=== PATIENT | female | born 1935 | race Caucasian/White ===

== ENCOUNTER 2021-05-08 13:00 | Inpatient (IN) | payer MEDICARE ==
[~2021-05-08] VITALS: Ht 167.6 cm; Wt 106.6 kg
[2021-05-08] MEDS ORDERED: SODIUM CHLORIDE 0.9% 1,000 ML IV ONE (13:15)
[2021-05-08 14:24] LABS: HEMATOCRIT. 38.2 % (36.0-48.0); HEMOGLOBIN. 12.3 g/dL (12.0-16.0); MEAN CORPUSCULAR HEMOGLOBIN 28.1 pg (28.0-32.0); MEAN CORPUSCULAR VOLUME 86.8 fL (81.0-99.0); MEAN PLATELET VOLUME 10.9 fl (7.4-10.4); PLATELET 144 x1000/uL (130-400); RED CELL DISTRIBUTION WIDTH 14.6 % (11.6-14.6)
[2021-05-08 14:32] LABS: CHLORIDE 106 mEq/L (98-107)
[2021-05-08 14:47] LABS: ATYPICAL LYMPHOCYTES 2; PLATELET ESTIMATE NORMAL
[2021-05-08] MEDS ORDERED: AMLODIPINE 5MG TABLET PO ONE (19:00)
[2021-05-08] MEDS ORDERED: MORPHINE SULFATE 4 MG/ML CPJ (NOT FOR IM USE) IV STA (19:05)
[2021-05-08] MEDS ORDERED: ONDANSETRON HCL 4MG/2ML INJ IV STA (19:05)
[2021-05-08 21:51] LABS: CLARITY URINE CLEAR (CLEAR); COLOR URINE YELLOW (YELLOW); KETONES URINE NEGATIVE (NEGATIVE); LEUKOCYTE ESTERASE URINE NEGATIVE (NEGATIVE); NITRITE URINE NEGATIVE (NEGATIVE); OCCULT BLOOD URINE NEGATIVE (NEGATIVE); PROTEIN URINE NEGATIVE (NEGATIVE); SPECIFIC GRAVITY URINE 1.015 (1.005-1.030); UROBILINOGEN URINE 0.2 E.U./dL (0.2-1.0)
[2021-05-09 14:00] VITALS: BP 178/64
[2021-05-09 14:25] VITALS: BP 178/64
[2021-05-09] MEDS ORDERED: ENOXAPARIN 40MG/0.4ML SYR SUBCUT SCH (15:30)
[2021-05-09] MEDS ORDERED: ACETAMINOPHEN 325MG TABLET PO PRN (15:30)
[2021-05-09] MEDS ORDERED: HYDROCODONE/ACETAMINOPHEN 5/325MG TABLET PO PRN (15:30)
[2021-05-09] MEDS ORDERED: IPRATROPIUM/ALBUTEROL 0.5-3(2.5)MG/3ML NEB HHN PRN (15:30)
[2021-05-09] MEDS ORDERED: DEXTROSE 50% WATER 50ML SYRINGE IV PRN (16:45)
[2021-05-09] MEDS: INSULIN LISPRO 100 UNITS/ML SUBCUT SCH ×2 (17:14→21:00)
[2021-05-09] MEDS: BLOOD SUGAR DIAGNOSTIC STRIP TEST SCH ×2 (17:14→21:12)
[2021-05-09] MEDS: SODIUM CHLORIDE 0.45% 1,000 ML IV SCH (17:59)
[2021-05-09] MEDS: ENOXAPARIN 30MG/0.3ML SYR SUBCUT SCH (17:59)
[2021-05-09 20:00] VITALS: BP 199/74
[2021-05-09] MEDS: PIPERACILLIN/TAZOBACTAM 3.375 G in DEXTROSE 5% WATER 50 ML IV NR (21:12)
[2021-05-09] MEDS ORDERED: PIPERACILLIN/TAZOBACTAM 3.375 G in DEXTROSE 5% WATER 50 ML IV SCH (22:00)
[2021-05-09] MEDS: CLONIDINE 0.1MG TABLET PO PRN (22:35)
[2021-05-10] VITALS: BP 147/70
[2021-05-10] MEDS: PIPERACILLIN/TAZOBACTAM 3.375G in DEXT 5% WATER 50ML IV SCH ×4 (00:09→22:14)
[2021-05-10 00:33] LABS: CREATINE KINASE 32 IU/L (26-192)
[2021-05-10 00:34] LABS: CREATINE KINASE MB FRACTION 1.3 ng/mL (0.5-3.6)
[2021-05-10 04:00] VITALS: BP 152/64
[2021-05-10] MEDS: ENOXAPARIN 30MG/0.3ML SYR SUBCUT SCH ×2 (06:02→18:11)
[2021-05-10] MEDS: BLOOD SUGAR DIAGNOSTIC STRIP TEST SCH ×4 (07:47→20:23)
[2021-05-10] MEDS: INSULIN LISPRO 100 UNITS/ML SUBCUT SCH ×4 (07:47→20:23)
[2021-05-10 08:21] LABS: HEMATOCRIT. 36.3 % (36.0-48.0); HEMOGLOBIN. 11.9 g/dL (12.0-16.0); MEAN CORPUSCULAR HEMOGLOBIN 28.3 pg (28.0-32.0); MEAN CORPUSCULAR VOLUME 86.3 fL (81.0-99.0); MEAN PLATELET VOLUME 10.6 fl (7.4-10.4); PLATELET 142 x1000/uL (130-400); RED CELL DISTRIBUTION WIDTH 14.5 % (11.6-14.6)
[2021-05-10 08:44] LABS: CHLORIDE 107 mEq/L (98-107)
[2021-05-10] MEDS: SODIUM CHLORIDE 0.45% 1,000 ML IV SCH (08:53)
[2021-05-10 08:54] LABS: HDL CHOLESTEROL 34 mg/dL (40-59); LDL CHOLESTEROL 133 mg/dL (5-100)
[2021-05-10 08:55] LABS: CREATINE KINASE 39 IU/L (26-192); CREATINE KINASE MB FRACTION < 1.0 ng/mL (0.5-3.6)
[2021-05-10 08:57] LABS: T4 FREE 1.55 ng/dL (0.76-1.46)
[2021-05-10 12:00] VITALS: BP 162/75
[2021-05-10] MEDS: CLONIDINE 0.1MG TABLET PO PRN ×2 (13:03→20:23)
[2021-05-10] MEDS: PIPERACILLIN/TAZOBACTAM 3.375 G in DEXTROSE 5% WATER 50 ML IV NR (15:21)
[2021-05-10 16:00] VITALS: BP 118/61
[2021-05-10 18:28] LABS: PLATELET ESTIMATE NORMAL
[2021-05-10 20:00] VITALS: BP 183/62
[2021-05-11] VITALS: BP 157/69
[2021-05-11] MEDS: SODIUM CHLORIDE 0.45% 1,000 ML IV SCH ×2 (01:51→17:15)
[2021-05-11 04:00] VITALS: BP 191/68
[2021-05-11] MEDS: ENOXAPARIN 30MG/0.3ML SYR SUBCUT SCH ×2 (06:02→17:15)
[2021-05-11] MEDS: PIPERACILLIN/TAZOBACTAM 3.375G in DEXT 5% WATER 50ML IV SCH ×3 (06:02→21:25)
[2021-05-11] MEDS: CLONIDINE 0.1MG TABLET PO PRN (06:03)
[2021-05-11] MEDS: BLOOD SUGAR DIAGNOSTIC STRIP TEST SCH ×4 (07:40→21:25)
[2021-05-11] MEDS: INSULIN LISPRO 100 UNITS/ML SUBCUT SCH ×4 (07:54→21:00)
[2021-05-11 08:00] VITALS: BP 184/74
[2021-05-11] MEDS: HYDRALAZINE HCL 25MG TABLET PO SCH ×3 (08:40→21:25)
[2021-05-11] MEDS: AMLODIPINE 5MG TABLET PO SCH ×2 (08:41→21:24)
[2021-05-11 12:00] VITALS: BP 178/74
[2021-05-11] MEDS: ASPIRIN 81MG TABLET PO SCH (12:38)
[2021-05-11] MEDS: LOSARTAN POTASSIUM 25 MG TABLET PO SCH (12:39)
[2021-05-11 15:17] LABS: HEMATOCRIT. 38.2 % (36.0-48.0); HEMOGLOBIN. 12.4 g/dL (12.0-16.0); MEAN CORPUSCULAR HEMOGLOBIN 27.7 pg (28.0-32.0); MEAN CORPUSCULAR VOLUME 85.3 fL (81.0-99.0); MEAN PLATELET VOLUME 10.6 fl (7.4-10.4); PLATELET 157 x1000/uL (130-400); RED BLOOD CELL COUNT 4.48 mill/uL (4.2-5.4); RED CELL DISTRIBUTION WIDTH 14.4 % (11.6-14.6)
[2021-05-11 15:24] LABS: CHLORIDE 105 mEq/L (98-107)
[2021-05-11 15:31] LABS: PHOSPHORUS 1.8 mg/dL (2.5-4.9)
[2021-05-11 15:33] LABS: CREATINE KINASE 26 IU/L (26-192)
[2021-05-11 15:36] LABS: CREATINE KINASE MB FRACTION 1.3 ng/mL (0.5-3.6)
[2021-05-11 15:54] LABS: PLATELET ESTIMATE NORMAL
[2021-05-11 16:00] VITALS: BP 173/75
[2021-05-11 20:00] VITALS: BP 167/82
[2021-05-11] MEDS: ATORVASTATIN CALCIUM 20MG TABLET PO SCH (21:24)
[2021-05-12] VITALS: BP 139/62
[2021-05-12 04:00] VITALS: BP 164/74
[2021-05-12] MEDS: PIPERACILLIN/TAZOBACTAM 3.375G in DEXT 5% WATER 50ML IV SCH ×3 (06:01→21:10)
[2021-05-12] MEDS: ENOXAPARIN 30MG/0.3ML SYR SUBCUT SCH ×2 (06:01→17:49)
[2021-05-12] MEDS: HYDRALAZINE HCL 25MG TABLET PO SCH ×3 (06:02→21:10)
[2021-05-12] MEDS: BLOOD SUGAR DIAGNOSTIC STRIP TEST SCH ×4 (07:44→21:08)
[2021-05-12] MEDS: INSULIN LISPRO 100 UNITS/ML SUBCUT SCH ×4 (07:45→21:09)
[2021-05-12 08:00] VITALS: BP 133/55
[2021-05-12 08:56] LABS: HEMATOCRIT. 38.6 % (36.0-48.0); HEMOGLOBIN. 12.6 g/dL (12.0-16.0); MEAN CORPUSCULAR HEMOGLOBIN 27.7 pg (28.0-32.0); MEAN CORPUSCULAR VOLUME 84.5 fL (81.0-99.0); MEAN PLATELET VOLUME 10.5 fl (7.4-10.4); PLATELET 188 x1000/uL (130-400); RED BLOOD CELL COUNT 4.57 mill/uL (4.2-5.4); RED CELL DISTRIBUTION WIDTH 14.5 % (11.6-14.6)
[2021-05-12] MEDS: AMLODIPINE 5MG TABLET PO SCH ×2 (09:19→21:10)
[2021-05-12] MEDS: ASPIRIN 81MG TABLET PO SCH (09:19)
[2021-05-12] MEDS: LOSARTAN POTASSIUM 25 MG TABLET PO SCH (09:19)
[2021-05-12] MEDS: SODIUM CHLORIDE 0.45% 1,000 ML IV SCH (10:10)
[2021-05-12 12:00] VITALS: BP 139/48
[2021-05-12 12:43] LABS: BG BASE EXCESS -1.3 mmol/L (-2.0-2.0); BG CARBOXYHEMOGLOBIN 0.1 % (0.5-1.5); BG DEOXYHEMOGLOBIN 3.4 % (0.0-5.0); BG FRACTION INSPIRED OXYGEN 21; BG HCO3 ACT 21.1 mmol/L (22.0-26.0); BG METHEMOGLOBIN 0.3 % (0.0-1.5); BG OXYGEN SATURATION 96.6 % (92.0-98.5); BG OXYHEMOGLOBIN 96.2 % (94.0-97.0); BG PCO2 29.1 mmHg (35.0-45.0); BG PH 7.478 (7.350-7.450); BG PO2 86.3 mmHg (75.0-100.0); BG SAMPLE SITE RIGHT RADIAL; BG TOTAL HEMOGLOBIN 13.2 g/dL (12.0-18.0); BG VENT MODE ROOM AIR
[2021-05-12 14:14] LABS: PLATELET ESTIMATE NORMAL
[2021-05-12] MEDS ORDERED: LOSA25TA3 MT (15:02)
[2021-05-12] MEDS ORDERED: ASPI-1497 MT (15:02)
[2021-05-12] MEDS ORDERED: AMLO10TA4 MT (15:02)
[2021-05-12] MEDS ORDERED: AMOX1TAB15 MT (15:02)
[2021-05-12] MEDS ORDERED: HYDR-4135 PO (15:02)
[2021-05-12 16:00] VITALS: BP 123/52
[2021-05-12 20:00] VITALS: BP 135/56
[2021-05-12] MEDS: ATORVASTATIN CALCIUM 20MG TABLET PO SCH (21:10)
[2021-05-13] VITALS: BP 133/50
[2021-05-13] MEDS: SODIUM CHLORIDE 0.45% 1,000 ML IV SCH (02:44)
[2021-05-13] MEDS: ONDANSETRON HCL 4MG/2ML INJ IV PRN ×3 (03:50→21:35)
[2021-05-13 04:00] VITALS: BP 131/56
[2021-05-13] MEDS: HYDRALAZINE HCL 25MG TABLET PO SCH ×3 (05:51→21:35)
[2021-05-13] MEDS: PIPERACILLIN/TAZOBACTAM 3.375G in DEXT 5% WATER 50ML IV SCH ×3 (05:51→21:35)
[2021-05-13] MEDS: ENOXAPARIN 30MG/0.3ML SYR SUBCUT SCH ×2 (05:51→18:50)
[2021-05-13] MEDS: BLOOD SUGAR DIAGNOSTIC STRIP TEST SCH ×4 (07:03→21:35)
[2021-05-13] MEDS: INSULIN LISPRO 100 UNITS/ML SUBCUT SCH ×4 (07:03→21:00)
[2021-05-13] MEDS: AMLODIPINE 5MG TABLET PO SCH ×2 (09:00→21:00)
[2021-05-13] MEDS: LOSARTAN POTASSIUM 25 MG TABLET PO SCH (09:00)
[2021-05-13] MEDS: ASPIRIN 81MG TABLET PO SCH (09:43)
[2021-05-13 10:47] LABS: HEMOGLOBIN 12.6 g/dL (12.0-16.0); MEAN CORPUSCULAR HEMOGLOBIN 28.3 pg (28.0-32.0); MEAN CORPUSCULAR VOLUME 84.8 fL (81.0-99.0); PLATELET 219 x1000/uL (130-400); RED BLOOD CELL COUNT 4.48 mill/uL (4.2-5.4); RED CELL DISTRIBUTION WIDTH 14.6 % (11.6-14.6)
[2021-05-13 11:16] LABS: CHLORIDE 105 mEq/L (98-107)
[2021-05-13 12:00] VITALS: BP 102/41
[2021-05-13] MEDS: SODIUM CHLORIDE 0.9% 1,000 ML IV SCH (15:17)
[2021-05-13 16:00] VITALS: BP 115/69
[2021-05-13 20:00] VITALS: BP 109/55
[2021-05-13] MEDS: ATORVASTATIN CALCIUM 20MG TABLET PO SCH (21:37)
[2021-05-13 22:17] LABS: CHLORIDE 104 mEq/L (98-107)
[2021-05-14] VITALS: BP 143/56
[2021-05-14] MEDS: SODIUM CHLORIDE 0.9% 1,000 ML IV SCH ×3 (00:09→21:10)
[2021-05-14] MEDS ORDERED: ALPRAZOLAM 0.25 MG TABLET PO PRN ×2 (02:00)
[2021-05-14 04:00] VITALS: BP 148/59
[2021-05-14] MEDS: PIPERACILLIN/TAZOBACTAM 3.375G in DEXT 5% WATER 50ML IV SCH (06:00)
[2021-05-14] MEDS: HYDRALAZINE HCL 25MG TABLET PO SCH ×3 (06:14→21:08)
[2021-05-14] MEDS: ENOXAPARIN 30MG/0.3ML SYR SUBCUT SCH ×2 (06:14→17:53)
[2021-05-14 07:28] LABS: BASOPHILS % 0.5 % (0.0-2.0); EOSINOPHILS % 0.2 % (0.0-5.0); HEMATOCRIT. 35.6 % (36.0-48.0); HEMOGLOBIN. 11.5 g/dL (12.0-16.0); LYMPHOCYTES % 49.5 % (20.0-50.0); MEAN CORPUSCULAR HEMOGLOBIN 27.7 pg (28.0-32.0); MEAN CORPUSCULAR VOLUME 85.4 fL (81.0-99.0); MEAN PLATELET VOLUME 10.1 fl (7.4-10.4); MONOCYTES % 5.8 % (2.0-8.0); PLATELET 214 x1000/uL (130-400); RED BLOOD CELL COUNT 4.17 mill/uL (4.2-5.4); RED CELL DISTRIBUTION WIDTH 14.6 % (11.6-14.6)
[2021-05-14 07:37] LABS: CHLORIDE 104 mEq/L (98-107)
[2021-05-14] MEDS: INSULIN LISPRO 100 UNITS/ML SUBCUT SCH ×4 (07:52→21:00)
[2021-05-14] MEDS: BLOOD SUGAR DIAGNOSTIC STRIP TEST SCH ×4 (07:52→21:00)
[2021-05-14 07:59] LABS: HEPATITIS B SURFACE ANTIGEN NEGATIVE
[2021-05-14 08:00] VITALS: BP 97/36
[2021-05-14] MEDS: ASPIRIN 81MG TABLET PO SCH (08:36)
[2021-05-14] MEDS: AMLODIPINE 5MG TABLET PO SCH ×2 (08:39→21:08)
[2021-05-14] MEDS: LOSARTAN POTASSIUM 25 MG TABLET PO SCH (08:39)
[2021-05-14] MEDS ORDERED: CEFEPIME HCL 1000MG/VIAL INJ IM SCH (09:00)
[2021-05-14] MEDS ORDERED: CEFEPIME HCL 1000MG/VIAL INJ IV SCH (09:00)
[2021-05-14] MEDS ORDERED: DIPHENHYDRAMINE 50MG/ML VIAL IV PRN (09:30)
[2021-05-14] MEDS ORDERED: DIPHENHYDRAMINE 50MG/ML VIAL IV NR (09:30)
[2021-05-14] MEDS ORDERED: METHYLPREDNISOLONE SOD SUCC 40 MG/ML VIAL IV NR (10:45)
[2021-05-14 11:23] LABS: BG BASE EXCESS -1.9 mmol/L (-2.0-2.0); BG CARBOXYHEMOGLOBIN 0.3 % (0.5-1.5); BG DEOXYHEMOGLOBIN 2.1 % (0.0-5.0); BG FRACTION INSPIRED OXYGEN 28; BG HCO3 ACT 22.7 mmol/L (22.0-26.0); BG METHEMOGLOBIN 0.1 % (0.0-1.5); BG OXYGEN SATURATION 97.9 % (92.0-98.5); BG OXYHEMOGLOBIN 97.5 % (94.0-97.0); BG PCO2 38.1 mmHg (35.0-45.0); BG PH 7.393 (7.350-7.450); BG PO2 110.4 mmHg (75.0-100.0); BG SAMPLE SITE RIGHT RADIAL; BG TOTAL HEMOGLOBIN 12.6 g/dL (12.0-18.0); BG VENT MODE NASAL CANNULA
[2021-05-14 12:00] VITALS: BP 142/63
[2021-05-14] MEDS ORDERED: FAMOTIDINE 20MG/2ML VIAL IV NR (14:45)
[2021-05-14 16:00] VITALS: BP 156/68
[2021-05-14 20:00] VITALS: BP 147/86
[2021-05-14] MEDS: ATORVASTATIN CALCIUM 20MG TABLET PO SCH (21:08)
[2021-05-15 04:00] VITALS: BP 153/63
[2021-05-15] MEDS: HYDRALAZINE HCL 25MG TABLET PO SCH ×3 (05:55→21:41)
[2021-05-15] MEDS: ENOXAPARIN 30MG/0.3ML SYR SUBCUT SCH ×2 (05:55→17:33)
[2021-05-15] MEDS: SODIUM CHLORIDE 0.9% 1,000 ML IV SCH ×2 (05:55→17:33)
[2021-05-15] MEDS: BLOOD SUGAR DIAGNOSTIC STRIP TEST SCH ×4 (07:40→21:41)
[2021-05-15 08:00] VITALS: BP 146/54
[2021-05-15] MEDS: INSULIN LISPRO 100 UNITS/ML SUBCUT SCH ×4 (08:10→21:00)
[2021-05-15] MEDS: FAMOTIDINE 20MG/2ML VIAL IV SCH (08:50)
[2021-05-15] MEDS: ASPIRIN 81MG TABLET PO SCH (08:51)
[2021-05-15] MEDS: AMLODIPINE 5MG TABLET PO SCH ×2 (08:51→21:41)
[2021-05-15 12:00] VITALS: BP 160/67
[2021-05-15 16:00] VITALS: BP 160/71
[2021-05-15 16:28] LABS: BASOPHILS % 0.5 % (0.0-2.0); EOSINOPHILS % 0.1 % (0.0-5.0); HEMATOCRIT. 37.4 % (36.0-48.0); HEMOGLOBIN. 11.9 g/dL (12.0-16.0); LYMPHOCYTES % 47.5 % (20.0-50.0); MEAN CORPUSCULAR HEMOGLOBIN 27.3 pg (28.0-32.0); MEAN CORPUSCULAR VOLUME 85.7 fL (81.0-99.0); MEAN PLATELET VOLUME 10.4 fl (7.4-10.4); MONOCYTES % 4.6 % (2.0-8.0); NEUTROPHILS % 47.3 % (40.0-76.0); PLATELET 254 x1000/uL (130-400); RED BLOOD CELL COUNT 4.37 mill/uL (4.2-5.4); RED CELL DISTRIBUTION WIDTH 15.1 % (11.6-14.6)
[2021-05-15 16:43] LABS: CHLORIDE 109 mEq/L (98-107)
[2021-05-15 20:00] VITALS: BP 167/67
[2021-05-15] MEDS: ATORVASTATIN CALCIUM 20MG TABLET PO SCH (21:41)
[2021-05-16] VITALS: BP 133/47
[2021-05-16] MEDS: SODIUM CHLORIDE 0.9% 1,000 ML IV SCH ×3 (03:47→22:09)
[2021-05-16 04:00] VITALS: BP 129/52
[2021-05-16] MEDS: HYDRALAZINE HCL 25MG TABLET PO SCH ×3 (06:29→21:03)
[2021-05-16] MEDS: ENOXAPARIN 30MG/0.3ML SYR SUBCUT SCH ×2 (06:29→17:05)
[2021-05-16 06:42] LABS: HEMATOCRIT 35.8 % (36.0-48.0); HEMOGLOBIN 11.7 g/dL (12.0-16.0); MEAN CORPUSCULAR HEMOGLOBIN 28.5 pg (28.0-32.0); MEAN CORPUSCULAR VOLUME 87.5 fL (81.0-99.0); PLATELET 190 x1000/uL (130-400); RED BLOOD CELL COUNT 4.09 mill/uL (4.2-5.4)
[2021-05-16 07:36] LABS: CHLORIDE 109 mEq/L (98-107)
[2021-05-16 07:46] LABS: TOTAL IRON BINDING CAPACITY 380 ug/dL (250-450)
[2021-05-16] MEDS: BLOOD SUGAR DIAGNOSTIC STRIP TEST SCH ×4 (07:50→21:04)
[2021-05-16] MEDS: INSULIN LISPRO 100 UNITS/ML SUBCUT SCH ×4 (07:50→21:00)
[2021-05-16 08:00] VITALS: BP 164/73
[2021-05-16] MEDS: FAMOTIDINE 20MG/2ML VIAL IV SCH (09:44)
[2021-05-16] MEDS: ASPIRIN 81MG TABLET PO SCH (09:44)
[2021-05-16] MEDS: AMLODIPINE 5MG TABLET PO SCH ×2 (09:45→21:03)
[2021-05-16 12:00] VITALS: BP 148/66
[2021-05-16 14:29] LABS: CARCINO EMBRYONIC ANTIGEN 0.6 ng/ml
[2021-05-16 16:00] VITALS: BP 133/75
[2021-05-16 20:00] VITALS: BP 167/60
[2021-05-16] MEDS: ATORVASTATIN CALCIUM 20MG TABLET PO SCH (21:03)
[2021-05-17] VITALS: BP 149/57
[2021-05-17 04:00] VITALS: BP 147/71
[2021-05-17] MEDS: HYDRALAZINE HCL 25MG TABLET PO SCH ×2 (05:47→13:38)
[2021-05-17] MEDS: ENOXAPARIN 30MG/0.3ML SYR SUBCUT SCH (05:47)
[2021-05-17] MEDS: INSULIN LISPRO 100 UNITS/ML SUBCUT SCH ×2 (07:33→12:13)
[2021-05-17] MEDS: BLOOD SUGAR DIAGNOSTIC STRIP TEST SCH ×3 (07:34→17:02)
[2021-05-17 08:00] VITALS: BP 156/54
[2021-05-17] MEDS: AMLODIPINE 5MG TABLET PO SCH (08:02)
[2021-05-17] MEDS: FAMOTIDINE 20MG/2ML VIAL IV SCH (08:02)
[2021-05-17] MEDS: ASPIRIN 81MG TABLET PO SCH (08:02)
[2021-05-17] MEDS: SODIUM CHLORIDE 0.9% 1,000 ML IV SCH (08:02)
[2021-05-17 12:00] VITALS: BP 151/56
[2021-05-17 12:34] LABS: CHLORIDE 111 mEq/L (98-107)
[2021-05-17 14:10] VITALS: BP 151/56
[2021-05-17] MEDS ORDERED: LACTULOSE 20G/30ML UDC PO NR (15:00)
== END 2021-05-17 17:27 | disposition home or self-care (01) | DRG 374 ==
LOC: ER 13:18 → MICUSO 19:00 → EDBEDREQ 19:03 → ENRESERV 05-09 08:42 → 7WST 05-09 12:45
PROVIDERS: ADMIT Internal Medicine; ATTEND Internal Medicine
DX: C78.6 Secondary malignant neoplasm of retroperitoneum and peritoneum (principal); U07.1 COVID-19; J12.82 Pneumonia due to coronavirus disease 2019; C80.0 Disseminated malignant neoplasm, unspecified; T50.901A Poisoning by unspecified drugs, medicaments and biological substances, accidental (unintentional), initial encounter; E87.6 Hypokalemia; K57.30 Diverticulosis of large intestine without perforation or abscess without bleeding; C43.9 Malignant melanoma of skin, unspecified; I12.9 Hypertensive chronic kidney disease with stage 1 through stage 4 chronic kidney disease, or unspecified chronic kidney disease; E11.22 Type 2 diabetes mellitus with diabetic chronic kidney disease; N18.9 Chronic kidney disease, unspecified; K83.8 Other specified diseases of biliary tract; I44.1 Atrioventricular block, second degree; E78.5 Hyperlipidemia, unspecified; R74.01 Elevation of levels of liver transaminase levels; Z90.49 Acquired absence of other specified parts of digestive tract; Z87.891 Personal history of nicotine dependence; Z79.899 Other long term (current) drug therapy; Y92.89 Other specified places as the place of occurrence of the external cause
CPT/HCPCS: 36415; 36600; 71045; 74176; 76856; 80048; 80053; 80061; 80076; 81003; 82105; 82140; 82248; 82375; 82378; 82550; 82553; 82607; 82728; 82746; 82805; 82962; 82977; 83036; 83540; 83550; 83605; 83735; 84100; 84439; 84443; 84484; 85025; 85027; 86301; 86304; 86705; 86709; 86803; 87340; 87426; 93005; 93923; 93970; 99285; J1200; J1650; J1815; J2270; J2405; J2543; J2920; J3490; J7030; J7060